=== PATIENT | female | born 1955 | race Caucasian/White ===

== ENCOUNTER 2017-07-04 12:44 | Emergency (ER) | payer MEDICARE, MEDICAID ==
[~2017-07-04] VITALS: Ht 165.1 cm; Wt 91.0 kg
[~2017-07-04 12:44] MED LIST: ASPI325T PO; CELE200C PO; CHOL50006 PO; HYDR10SO PO; LORA2TAB PO; MICO4CRE VAGINAL
[2017-07-04 12:47] VITALS: BP 121/80; PULSE 90; RESP 18; TEMP 98; O2SAT 100
--- NOTE | 2017-07-04 13:08 | PD ---
HPI Chief Complaint: Cold / Flu Symptoms Time Seen by Provider: 12:50 Travel History International Travel<30 days: No Contact w/Intl Traveler<30days: No Traveled to known affect area: No History of Present Illness HPI The patient was seen and examined in the presence of the nurse. This patient complains of having flulike symptoms. She went to an emergency room in [place] 2 weeks ago and took an unknown course of antibiotics. She did not get any better. She complains of body aches and said she had a temperature 101 last night. She had a cough that has resolved she has mild nasal congestion. She denies urinary complaints. No vomiting or diarrhea or abdominal pain. Symptom severity is moderate. No alleviating factors. No exacerbating factors. PFSH Past Medical History Autoimmune Disease: No Blood Disorders: No Cancer: No Cardiovascular Problems: No Chemotherapy: No Diminished Hearing: No Gastrointestinal Disorders: Yes Genitourinary: Yes Musculoskeletal: Yes (chronic back pain) Neurologic: No Psychiatric: No Respiratory: No Radiation Therapy: No Menopausal: Yes Past Surgical History Abdominal Surgery: No AICD: No Cholecystectomy: Yes Genitourinary Surgery: No Pacemaker: No Thoracic Surgery: No Tonsillectomy: Yes Other Surgery: No Social History Alcohol Use: No Tobacco Use: No Substance Use: No Allergies-Medications (Allergen,Severity, Reaction): Uncoded Allergies: Do not give Narcotics (Adverse Reaction, Unknown, 05/25/13) insurance company documented that patient has gotten narcotics from 4 prescribers in the span of three months. do not give benzos (Adverse Reaction, 05/25/13) Reported Meds & Prescriptions Reported Meds & Active Scripts Active Monistat 7 Simply Cure (Miconazole Nitrate Vaginal) 2 % Cre 1 Appl VAGINAL ONCE 7 Days Celebrex (Celecoxib) 200 Mg Cap 200 Mg PO DAILY Reported Aspirin 325 Mg Tab (Aspirin) 325 Mg Tab 325 Mg PO DAILY Hydrocodone/Acetaminophen 10 mg/325 mg 1 Tab 1 Tab PO BID PRN Vitamin D (Cholecalciferol) 5,000 Unit Tab 5,000 Unit PO WEEKLY Lorazepam 2 Mg Tab 2 Mg PO DAILY PRN Review of Systems General / Constitutional: Positive: Fever Eyes: No: Visual changes HENT: Positive: Rhinorrhea, Congestion, No: Headaches Cardiovascular: No: Chest Pain or Discomfort Respiratory: No: Shortness of Breath Gastrointestinal: No: Abdominal Pain Genitourinary: No: Dysuria Musculoskeletal: Positive: Myalgias, No: Pain Skin: No Rash Neurologic: No: Weakness Psychiatric: No: Depression Endocrine: No: Polydipsia Hematologic/Lymphatic: No: Easy Bruising Physical Exam Narrative GENERAL: Well-nourished, well-developed patient in no apparent distress. SKIN: Focused skin assessment reveals no rash and nodules. Skin is Warm and dry. HEAD: Atraumatic. Normocephalic. EYES: Pupils equal and round. No scleral icterus. No injection or drainage. Throat clear ENT: No nasal bleeding or discharge. Mucous membranes pink and moist. NECK: Trachea midline. No JVD. No meningeal signs CARDIOVASCULAR: Regular rate and rhythm. No murmur appreciated. RESPIRATORY: No accessory muscle use. Clear to auscultation. Breath sounds equal bilaterally. GASTROINTESTINAL: Abdomen soft, non-tender, nondistended. Hepatic and splenic margins not palpable. MUSCULOSKELETAL: No obvious deformities. No clubbing. No cyanosis. No edema. NEUROLOGICAL: Awake and alert. No obvious cranial nerve deficits. Motor grossly within normal limits. Normal speech. PSYCHIATRIC: Appropriate mood and affect; insight and judgment normal. Data Data Last Documented VS Vital Signs Date Time Temp Pulse Resp B/P (MAP) Pulse Ox O2 Delivery O2 Flow Rate FiO2 07/04/17 12:47 98.0 90 18 121/80 (94) 100 Orders Orders Chest, Pa & Lat (07/04/17 ) Urinalysis - C+S If Indicated (07/04/17 13:00) Labs Laboratory Tests Test 07/04/17 13:00 Urine Color YELLOW Urine Turbidity CLEAR Urine pH 7.5 Urine Specific [place] 1.023 Urine Protein TRACE mg/dL Urine Glucose (UA) NEG mg/dL Urine Ketones NEG mg/dL Urine Occult Blood NEG Urine Nitrite NEG Urine Bilirubin NEG Urine Urobilinogen LESS THAN 2.0 MG/DL Urine Leukocyte Esterase NEG Urine RBC 1 /hpf Urine WBC 1 /hpf Urine Squamous Epithelial Cells 4 /hpf Urine Amorphous Sediment OCC Urine Bacteria OCC /hpf Urine Mucus FEW /lpf Microscopic Urinalysis Comment CULT NOT INDICATED MDM Medical Decision Making Medical Screen Exam Complete: Yes Emergency Medical Condition: Yes Medical Record Reviewed: Yes Differential Diagnosis Bronchitis, pneumonia, UTI Narrative Course I have reviewed the patient's electronic medical record. Patient's vital signs are normal No meningeal signs I reviewed her chest x-ray which is normal Urinalysis is clean Her exam is benign I suspect she has a viral infection. I do not see indication for further antibiotics. Diagnosis Primary Impression: Febrile illness, acute Additional Impression: Myalgia Additional Instructions: The patient was advised to follow up with their physician and return if they worsen. Med/Other Pt SpecificInfo: Other Disposition: 01 DISCHARGE HOME Condition: Stable Talon Gustafson MD July 04, 2017 13:07
--- NOTE | 2017-07-04 13:25 | RADRPT ---
EXAM DATE/TIME: 07/04/2017 13:15 [facility] COMPARISON: No previous studies available for comparison. INDICATIONS : Fever MEDICAL HISTORY : None. SURGICAL HISTORY : None. ENCOUNTER: Initial ACUITY: 2 weeks PAIN SCORE: 0/10 LOCATION: chest FINDINGS: PA and lateral views of the chest demonstrate the lungs to be symmetrically aerated without evidence of mass, infiltrate or effusion. The cardiomediastinal contours are unremarkable. Osseous structure s are intact. CONCLUSION: No acute disease. Mal Holman MD FACR on July 04, 2017 at 13:23 Board Certified Radiologist. This report was verified electronically.
[2017-07-04 13:40] LABS: AMORPHOUS SEDIMENT, URINE OCC; BACTERIA, URINE OCC /hpf; BILIRUBIN, URINE NEG (NEG); BLOOD, URINE NEG (NEG); GLUCOSE,URINE NEG (NEG); KETONE, URINE NEG (NEG); MUCUS URINE FEW /lpf (OCC); NITRITE,URINE NEG (NEG); PH, URINE 7.5 (5.0-8.5); SQUAMOUS EPITHELIAL CELL URINE 4 /hpf (0-5); URINE COLOR YELLOW (YELLW/STRAW); URINE LEUKOCYTE ESTERASE NEG (NEG)
[2017-07-04 14:23] VITALS: BP 124/72
== END 2017-07-04 14:23 | disposition home or self-care (01) ==
LOC: NEPC 12:44
DX: R50.9 Fever, unspecified (principal); M79.1 Myalgia; Z79.82 Long term (current) use of aspirin; Z79.899 Other long term (current) drug therapy
CPT/HCPCS: 71046; 81001; 99284